=== PATIENT | female | born 1980 | race African-American/Black ===

== ENCOUNTER 2018-04-06 13:41 | Inpatient (IN) | payer OTHER ==
[~2018-04-06] VITALS: Ht 180.3 cm; Wt 122.5 kg
[2018-04-06] MEDS ORDERED: ACETAMINOPHEN 325MG TABLET PO STA (15:26)
[2018-04-06] MEDS ORDERED: SODIUM CHLORIDE 0.9% 1000ML BAG (SEPSIS BOLUS) IV ONE (15:30)
[2018-04-06 16:06] LABS: BASOPHILS % 1.3 % (0.0-2.0); EOSINOPHILS % 0.1 % (0.0-5.0); HEMATOCRIT. 38.3 % (36.0-48.0); HEMOGLOBIN. 12.5 g/dL (12.0-16.0); LYMPHOCYTES % 15.7 % (20.0-50.0); MEAN CORPUSCULAR HEMOGLOBIN 25.9 pg (28.0-32.0); MEAN CORPUSCULAR VOLUME 79.4 fL (81.0-99.0); MEAN PLATELET VOLUME 12.2 fl (7.4-10.4); MONOCYTES % 8.2 % (2.0-8.0); NEUTROPHILS % 74.7 % (40.0-76.0); PLATELET 193 x1000/uL (130-400); RED BLOOD CELL COUNT 4.82 mill/uL (4.2-5.4); RED CELL DISTRIBUTION WIDTH 16.4 % (11.6-14.6)
[2018-04-06 16:14] LABS: D-DIMER 0.75 mg/L FEU (<0.50); INR 1.4; PROTHROMBIN TIME 13.9 sec (9.1-11.1)
[2018-04-06 16:15] LABS: CHLORIDE 104 mEq/L (98-107)
[2018-04-06] MEDS ORDERED: ASPIRIN 81MG TABLET PO ONE (16:45)
[2018-04-06] MEDS ORDERED: AZITHROMYCIN 500 MG in DEXT 5% WATER 250 ML IV SCH (17:30)
[2018-04-06] MEDS ORDERED: CEFTRIAXONE 1 G PREMIX 50 ML IV ONE (17:30)
[2018-04-06] MEDS ORDERED: POTASSIUM CHLORIDE 20MEQ TABLET SR PO PRN (21:45)
[2018-04-06] MEDS ORDERED: ACETAMINOPHEN 650MG SUPP PR PRN (21:45)
[2018-04-06] MEDS ORDERED: DOCUSATE SODIUM 100MG CAPSULE PO PRN (21:45)
[2018-04-06] MEDS ORDERED: IOHEXOL-350 100 ML BOTTLE ONE (22:48)
[2018-04-07] VITALS (9 sets, daily range): BP systolic 132–188; BP diastolic 91–110
[2018-04-07 05:12] LABS: BASOPHILS % 0.6 % (0.0-2.0); HEMATOCRIT. 37.3 % (36.0-48.0); HEMOGLOBIN. 12.2 g/dL (12.0-16.0); LYMPHOCYTES % 14.7 % (20.0-50.0); MEAN CORPUSCULAR HEMOGLOBIN 25.9 pg (28.0-32.0); MEAN CORPUSCULAR VOLUME 79.2 fL (81.0-99.0); MEAN PLATELET VOLUME 12.1 fl (7.4-10.4); MONOCYTES % 7.3 % (2.0-8.0); NEUTROPHILS % 77.4 % (40.0-76.0); PLATELET 153 x1000/uL (130-400); RED CELL DISTRIBUTION WIDTH 16.3 % (11.6-14.6)
[2018-04-07] MEDS ORDERED: POTASSIUM CHLORIDE 20MEQ TABLET SR PO NR (08:00)
[2018-04-07] MEDS: CARVEDILOL 3.125 MG TABLET PO SCH ×2 (09:13→20:18)
[2018-04-07] MEDS: ASPIRIN 81MG TABLET PO SCH (09:14)
[2018-04-07] MEDS: FUROSEMIDE 40MG/4ML VIAL IV SCH (09:21)
[2018-04-07] MEDS: MAGNESIUM OXIDE 400MG TABLET PO SCH (09:21)
[2018-04-07] MEDS ORDERED: POTASSIUM CHLORIDE 20MEQ TABLET SR PO ONE (10:00)
[2018-04-07] MEDS ORDERED: MAGNESIUM 1 G PREMIX 100 ML IV NR (10:30)
[2018-04-07] MEDS ORDERED: FUROSEMIDE 40MG/4ML VIAL IVP NR (10:45)
[2018-04-07] MEDS ORDERED: LOSARTAN POTASSIUM 25 MG TABLET PO SCH (10:45)
[2018-04-07] MEDS ORDERED: NITROGLYCERIN OINT 1GM/INCH UDPKT TD NR (10:45)
[2018-04-07 10:56] LABS: BG BASE EXCESS 1.2 mmol/L (-2.0-2.0); BG CARBOXYHEMOGLOBIN 0.5 % (0.5-1.5); BG DEOXYHEMOGLOBIN 3.1 % (0.0-5.0); BG HCO3 ACT 24.7 mmol/L (22.0-26.0); BG METHEMOGLOBIN 0.3 % (0.0-1.5); BG OXYGEN SATURATION 96.9 % (92.0-98.5); BG OXYHEMOGLOBIN 96.1 % (94.0-97.0); BG PCO2 35.4 mmHg (35.0-45.0); BG PH 7.461 (7.350-7.450); BG PO2 94.5 mmHg (75.0-100.0); BG SAMPLE SITE RIGHT BRACHIAL; BG TOTAL HEMOGLOBIN 12.6 g/dL (12.0-18.0); BG VENT MODE NASAL CANNULA
[2018-04-07] MEDS ORDERED: MAGNESIUM SULFATE 2 GM in DEXTROSE 5% WATER 50 ML IV NR (12:00)
[2018-04-07] MEDS ORDERED: LIDOCAINE HCL/PF 1% 2ML VIAL ONE (13:18)
[2018-04-07] MEDS: CLONIDINE 0.1MG TABLET PO PRN ×2 (16:16→22:28)
[2018-04-07] MEDS: TRAMADOL 50MG TABLET PO PRN (18:49)
[2018-04-07] MEDS: ATORVASTATIN CALCIUM 10MG TABLET PO SCH (20:18)
[2018-04-07] MEDS: ZOLPIDEM TARTRATE 5MG TABLET PO PRN (20:19)
[2018-04-07] MEDS: METRONIDAZOLE 500 MG PREMIX 100 ML IV SCH (22:29)
[2018-04-07] MEDS: CEFEPIME 2,000 MG in DEXT 5% WATER 100 ML IV SCH (23:04)
[2018-04-08] VITALS (20 sets, daily range): BP systolic 55–172; BP diastolic 16–117
[2018-04-08] MEDS: TRAMADOL 50MG TABLET PO PRN ×3 (00:26→21:12)
[2018-04-08] MEDS: METRONIDAZOLE 500 MG PREMIX 100 ML IV SCH ×3 (06:09→22:11)
[2018-04-08] MEDS: CLONIDINE 0.1MG TABLET PO PRN (06:44)
[2018-04-08 06:48] LABS: BASOPHILS % 1.3 % (0.0-2.0); HEMOGLOBIN. 12.2 g/dL (12.0-16.0); MEAN CORPUSCULAR HEMOGLOBIN 25.5 pg (28.0-32.0); MEAN CORPUSCULAR VOLUME 79.5 fL (81.0-99.0); MEAN PLATELET VOLUME 11.9 fl (7.4-10.4); MONOCYTES % 7.7 % (2.0-8.0); PLATELET 129 x1000/uL (130-400); RED BLOOD CELL COUNT 4.78 mill/uL (4.2-5.4); RED CELL DISTRIBUTION WIDTH 16.4 % (11.6-14.6)
[2018-04-08 07:08] LABS: CHLORIDE 105 mEq/L (98-107)
[2018-04-08 07:15] LABS: HDL CHOLESTEROL 27 mg/dL (40-59); LDL CHOLESTEROL 49 mg/dL (5-100)
[2018-04-08] MEDS: ASPIRIN 81MG TABLET PO SCH (10:22)
[2018-04-08] MEDS: FUROSEMIDE 40MG/4ML VIAL IV SCH (10:22)
[2018-04-08] MEDS: MAGNESIUM OXIDE 400MG TABLET PO SCH (10:22)
[2018-04-08] MEDS: ISOSORB DINIT/HYDRALAZINE HCL 20/37.5MG TABLET PO SCH ×2 (11:05→21:13)
[2018-04-08] MEDS ORDERED: CARVEDILOL 6.25 MG TABLET PO NR (11:30)
[2018-04-08] MEDS: CEFEPIME 2,000 MG in DEXT 5% WATER 100 ML IV SCH ×2 (13:25→23:17)
[2018-04-08] MEDS ORDERED: ONDANSETRON HCL 4MG/2ML INJ IV PRN (13:30)
[2018-04-08] MEDS: LOSARTAN POTASSIUM 50 MG TABLET PO SCH (18:19)
[2018-04-08] MEDS: ATORVASTATIN CALCIUM 10MG TABLET PO SCH (21:12)
[2018-04-08] MEDS: ZOLPIDEM TARTRATE 5MG TABLET PO PRN (21:13)
[2018-04-08] MEDS: CARVEDILOL 6.25 MG TABLET PO SCH (21:13)
[2018-04-08 21:28] LABS: INR 1.3; PARTIAL THROMBOPLASTIN TIME 28.3 sec (23.4-31.0); PROTHROMBIN TIME 13.3 sec (9.1-11.1)
[2018-04-08 21:32] LABS: CREATINE KINASE 101 IU/L (26-192)
[2018-04-08 22:02] LABS: HEPATITIS B SURFACE ANTIGEN NEGATIVE
[2018-04-08 22:30] LABS: HEPATITIS B CORE AB IGM NEGATIVE
[2018-04-08 22:32] LABS: HEPATITIS A AB IGM NEGATIVE (NEGATIVE)
[2018-04-09] VITALS (11 sets, daily range): BP systolic 105–127; BP diastolic 51–75
[2018-04-09] MEDS: METRONIDAZOLE 500 MG PREMIX 100 ML IV SCH ×2 (06:04→14:37)
[2018-04-09] MEDS: ISOSORB DINIT/HYDRALAZINE HCL 20/37.5MG TABLET PO SCH ×2 (06:04→14:01)
[2018-04-09 07:23] LABS: HEMATOCRIT. 35.9 % (36.0-48.0); HEMOGLOBIN. 11.7 g/dL (12.0-16.0); MEAN CORPUSCULAR HEMOGLOBIN 26.2 pg (28.0-32.0); MEAN CORPUSCULAR VOLUME 80.5 fL (81.0-99.0); MEAN PLATELET VOLUME 12.1 fl (7.4-10.4); PLATELET 127 x1000/uL (130-400); RED BLOOD CELL COUNT 4.46 mill/uL (4.2-5.4); RED CELL DISTRIBUTION WIDTH 16.3 % (11.6-14.6)
[2018-04-09] MEDS: ASPIRIN 81MG TABLET PO SCH (08:41)
[2018-04-09] MEDS: LOSARTAN POTASSIUM 50 MG TABLET PO SCH ×2 (08:42→17:27)
[2018-04-09] MEDS: FUROSEMIDE 40MG/4ML VIAL IV SCH (08:42)
[2018-04-09] MEDS: MAGNESIUM OXIDE 400MG TABLET PO SCH (08:42)
[2018-04-09] MEDS: CARVEDILOL 6.25 MG TABLET PO SCH ×2 (08:42→20:36)
[2018-04-09] MEDS ORDERED: PANTOPRAZOLE SODIUM 40 MG/VIAL IV SCH (09:00)
[2018-04-09] MEDS ORDERED: ACETAMINOPHEN 325MG TABLET PO PRN (09:45)
[2018-04-09] MEDS: CEFEPIME 2,000 MG in DEXT 5% WATER 100 ML IV SCH (11:55)
[2018-04-09 20:04] LABS: PLATELET ESTIMATE DECREASED
[2018-04-09 20:22] LABS: UCG SCREEN NEGATIVE
[2018-04-09 20:36] LABS: *AMPHETAMINES SCREEN URINE NEGATIVE (NEGATIVE); *BARBITURATES SCREEN URINE NEGATIVE (NEGATIVE); *BENZODIAZEPINES SCREEN URINE NEGATIVE (NEGATIVE); *COCAINE SCREEN URINE NEGATIVE (NEGATIVE)
[2018-04-09] MEDS: ATORVASTATIN CALCIUM 10MG TABLET PO SCH (20:36)
[2018-04-09 20:37] LABS: CANNABINOID URINE SCREEN NEGATIVE (NEGATIVE); METHADONE URINE SCREEN NEGATIVE (NEGATIVE); OPIATES URINE SCREEN NEGATIVE (NEGATIVE); PHENCYCLIDINE URINE SCREEN NEGATIVE (NEGATIVE)
== END 2018-04-09 21:26 | disposition short-term general hospital (02) | DRG 871 ==
LOC: ER 14:45 → 5WST 19:54 → EDBEDREQ 19:56 → EDBEDREQTM 19:56 → ENRESERV 04-07 05:56 → 5EST 04-07 11:50
PROVIDERS: ADMIT Emergency Medicine; ATTEND Emergency Medicine
DX: A41.9 Sepsis, unspecified organism (principal); J96.90 Respiratory failure, unspecified, unspecified whether with hypoxia or hypercapnia; I50.43 Acute on chronic combined systolic (congestive) and diastolic (congestive) heart failure; I13.0 Hypertensive heart and chronic kidney disease with heart failure and stage 1 through stage 4 chronic kidney disease, or unspecified chronic kidney disease; N17.9 Acute kidney failure, unspecified; J98.11 Atelectasis; I25.5 Ischemic cardiomyopathy; D69.6 Thrombocytopenia, unspecified; E87.6 Hypokalemia; R16.0 Hepatomegaly, not elsewhere classified; A08.4 Viral intestinal infection, unspecified; R74.8 Abnormal levels of other serum enzymes; E83.42 Hypomagnesemia; D72.819 Decreased white blood cell count, unspecified; R74.0 Nonspecific elevation of levels of transaminase and lactic acid dehydrogenase [LDH]; D57.3 Sickle-cell trait; N18.9 Chronic kidney disease, unspecified; I25.10 Atherosclerotic heart disease of native coronary artery without angina pectoris; T50.905A Adverse effect of unspecified drugs, medicaments and biological substances, initial encounter; Z95.1 Presence of aortocoronary bypass graft; Z82.49 Family history of ischemic heart disease and other diseases of the circulatory system; I25.2 Old myocardial infarction; Y92.89 Other specified places as the place of occurrence of the external cause
CPT/HCPCS: 36415; 36600; 71045; 71275; 74176; 76700; 80048; 80061; 80076; 80305; 80307; 81025; 82375; 82550; 82805; 83036; 83605; 83735; 83880; 84484; 85379; 86705; 86709; 86803; 87340; 87804; 93005; 93306; 96365; 96366; 96367; 99285; C9113; J0456; J0692; J0696; J1940; J2405; J3475; J3490; J7030; J7050; J7060; Q9967